=== PATIENT | male | born 1970 | race Caucasian/White ===

== ENCOUNTER 2017-03-24 14:32 | Emergency (ER) | payer SELFPAY ==
[~2017-03-24] VITALS: Ht 177.8 cm; Wt 72.5 kg
[2017-03-24 14:33] VITALS: BP 172/111; PULSE 112; RESP 20; TEMP 98.4; O2SAT 99
[2017-03-24] MEDS ORDERED: LIDOCAINE HCL 1% 50 ML VIAL INFIL ONE (16:00)
[2017-03-24] MEDS ORDERED: KETOROLAC TROMETHAMINE 30 MG/ML (IVP) VIAL IVP ONE (16:00)
[2017-03-24] MEDS ORDERED: SODIUM CHLORIDE 0.9% FLUSH 10 ML FLUSH IVF PRN (16:00)
[2017-03-24] MEDS ORDERED: SODIUM CHLOR 0.9% 1000 ML INJ 1,000 ML IV ONE (16:00)
[2017-03-24] MEDS ORDERED: CLINDAMYCIN INJ 900 MG in SODIUM CHLORIDE 0.9% INJ 100 ML IV ONE (16:00)
--- NOTE | 2017-03-24 16:06 | PD ---
HPI Chief Complaint: Bite or Sting Time Seen by Provider: 15:56 Travel History International Travel<30 days: No Contact w/Intl Traveler<30days: No Traveled to known affect area: No History of Present Illness HPI 46 Yo M presents to the ED for evaluation of pain, redness and swelling of the left axilla x 5 days. The patient thinks he may been bitten by a spider while hanging plywood over the windows before hurting Chanel. He states that he has attempted to squeeze the area multiple times with no benefit symptoms. He endorses chills, nausea and vomiting. He has not measured a fever at home. States his tetanus immunization was updated in 2016. He denies chronic health problems and takes no daily medications. PFSH Past Medical History Medical History: Denies Significant Hx Anxiety: Yes Depression: Yes Cardiovascular Problems: Yes Diminished Hearing: No Hypertension: Yes Psychiatric: Yes Past Surgical History Surgical History: No Previous Surgery Social History Alcohol Use: No Tobacco Use: Yes Substance Use: No Allergies-Medications (Allergen,Severity, Reaction): Coded Allergies: No Known Allergies (Unverified , 03/24/17) Reported Meds & Prescriptions Reported Meds & Active Scripts Active Ibuprofen 800 Mg Tab 800 Mg PO Q8H Clindamycin (Clindamycin HCl) 150 Mg Cap 450 Mg PO Q8HR 7 Days Review of Systems Except as stated in HPI: all other systems reviewed are Neg Physical Exam Narrative GENERAL: Well-nourished, well-developed male in no acute distress. SKIN: Focused skin assessment warm/dry. SKIN: There is an indurated area in the left axilla which measures about 4 cm in diameter. It is fluctuant but there is no pointing or drainage. There is a wide zone of inflammation around it, tender axillary LAD noted. HEAD: Normocephalic. EYES: No scleral icterus. No injection or drainage. NECK: Supple, trachea midline. No JVD or lymphadenopathy. CARDIOVASCULAR: Regular rate and rhythm without murmurs, gallops, or rubs. RESPIRATORY: Breath sounds clear and equal bilaterally. No accessory muscle use. GASTROINTESTINAL: Abdomen soft, non-tender, nondistended. MUSCULOSKELETAL: No cyanosis, or edema. BACK: Nontender without obvious deformity. No CVA tenderness. Data Data Last Documented VS Vital Signs Date Time Temp Pulse Resp B/P (MAP) Pulse Ox O2 Delivery O2 Flow Rate FiO2 03/24/17 18:05 03/24/17 17:20 94 22 100 Room Air 03/24/17 14:33 98.4 Orders Orders Basic Metabolic Panel (Bmp) (03/24/17 15:52) Complete Blood Count With Diff (03/24/17 15:52) Blood Culture (03/24/17 15:52) Wound Culture And Gram Stain (03/24/17 15:52) Iv Access Insert/Monitor (03/24/17 15:52) Ketorolac Inj (Toradol Inj) (03/24/17 16:00) Sodium Chloride 0.9% Flush (Ns Flush) (03/24/17 16:00) Clindamycin Inj (Cleocin Inj) (03/24/17 16:00) Lactic Acid Sepsis Protocol (03/24/17 15:52) Sodium Chlor 0.9% 1000 Ml Inj (Ns 1000 M (03/24/17 16:00) Westergren Sedimentation Rate (03/24/17 15:52) C-Reactive Protein (Crp) (03/24/17 15:52) Lidocaine 1% Inj (Xylocaine 1% Inj) (03/24/17 17:00) Labs Laboratory Tests Test 03/24/17 16:13 03/24/17 16:15 White Blood Count 8.2 TH/MM3 Red Blood Count 5.21 MIL/MM3 Hemoglobin 15.1 GM/DL Hematocrit 45.3 % Mean Corpuscular Volume 87.0 FL Mean Corpuscular Hemoglobin 29.0 PG Mean Corpuscular Hemoglobin Concent 33.3 % Red Cell Distribution Width 13.4 % Platelet Count 241 TH/MM3 Mean Platelet Volume 8.7 FL Neutrophils (%) (Auto) 62.4 % Lymphocytes (%) (Auto) 24.6 % Monocytes (%) (Auto) 10.0 % Eosinophils (%) (Auto) 2.4 % Basophils (%) (Auto) 0.6 % Neutrophils # (Auto) 5.1 TH/MM3 Lymphocytes # (Auto) 2.0 TH/MM3 Monocytes # (Auto) 0.8 TH/MM3 Eosinophils # (Auto) 0.2 TH/MM3 Basophils # (Auto) 0.0 TH/MM3 CBC Comment DIFF FINAL Differential Comment Blood Urea Nitrogen 9 MG/DL Creatinine 0.82 MG/DL Random Glucose 102 MG/DL Calcium Level 8.9 MG/DL Sodium Level 138 MEQ/L Potassium Level 3.9 MEQ/L Chloride Level 103 MEQ/L Carbon Dioxide Level 29.0 MEQ/L Anion Gap 6 MEQ/L Estimat Glomerular Filtration Rate 101 ML/MIN C-Reactive Protein 2.82 MG/DL Lactic Acid Level 1.3 mmol/L MDM Medical Decision Making Medical Screen Exam Complete: Yes Emergency Medical Condition: Yes Differential Diagnosis Abscess versus cellulitis versus sepsis versus other Narrative Course 46-year-old male presents to the ED for evaluation of possible spider bite in the left axilla 5 days. On arrival the patient is tachycardic with a rate of 112 and afebrile. Physical exam reveals a large abscess in the left axilla with tender lymphadenopathy and a wide area of inflammation noted. IV established. Wound and blood cultures were obtained. Abscess I&D was performed by my colleague GYPSY Morrison. Please see her note for those details. The patient was administered 1 L normal saline, 900 mg clindamycin and 30 mg Toradol IV. CBC: WBC 8.2, hemoglobin 15.1 BMP: Unremarkable Lactic acid: 1.3 CRP: 2.82 ESR: Pending Patient reports improvement of his pain symptoms after the I&D procedure. Skin marker was used to demarcate the line of cellulitis on the chest. Heart rate improved to 94 on recheck. We'll trial him on outpatient clindamycin and anti- inflammatories. He is instructed to begin the antibiotics tonight, return to the ED tomorrow for wound recheck. He was provided a note for work. He indicated understanding of instructions and is agreeable to the care plan. He is stable and discharged home. Diagnosis Primary Impression: Abscess of axilla, left Additional Impression: Cellulitis of axilla, left Referrals: [facility] Patient Instructions: Abscess (ED), General Instructions Departure Forms: Tests/Procedures, Work Release Enter return to work date: Mar 27, 2017 Additional Instructions: Rest, hydrate. Do not change the dressing. Take the antibiotics as they are prescribed, even if your symptoms resolve. 800 mg ibuprofen up to 3 times a day as needed to reduce pain and inflammation. Return to the ED TOMORROW for wound recheck. Follow-up with your primary care provider. Return to the ED for any urgent or emergent medical condition. Med/Other Pt SpecificInfo: Prescription(s) given Scripts Ibuprofen (Ibuprofen) 800 Mg Tab 800 MG PO Q8H, #15 TAB 0 Refills Prov: Sharon Traylor MD 03/24/17 Clindamycin (Clindamycin) 150 Mg Cap 450 MG PO Q8HR for Infection for 7 Days, CAP 0 Refills Prov: Sharon Traylor MD 03/24/17 Disposition: 01 DISCHARGE HOME Condition: Stable Cheri Rice Mar 24, 2017 16:06
[2017-03-24 16:55] LABS: AUTOMATED NEUTROPHIL # 5.1 TH/MM3 (1.8-7.7); BASOPHIL % 0.6 % (0.0-2.0); EOSINOPHIL # 0.2 TH/MM3 (0-0.4); EOSINOPHIL % 2.4 % (0.0-4.0); HEMATOCRIT 45.3 % (39.0-51.0); HEMO FLAGS DIFF FINAL; LYMPH % 24.6 % (9.0-44.0); MEAN CORPUSCULAR HGB CONC 33.3 % (32.0-36.0); NEUT % 62.4 % (16.0-70.0); PLATELET COUNT 241 TH/MM3 (150-450); RED BLOOD COUNT 5.21 MIL/MM3 (4.50-5.90); RED CELL DISTRIBUTION WIDTH 13.4 % (11.6-17.2); WHITE BLOOD COUNT 8.2 TH/MM3 (4.0-11.0)
[2017-03-24] MEDS ORDERED: LIDOCAINE HCL 1% 20 ML VIAL INFIL ONE (17:00)
[2017-03-24 17:15] LABS: POTASSIUM 3.9 MEQ/L (3.5-5.1)
[2017-03-24 17:20] VITALS: BP 144/89; PULSE 94; RESP 22; O2SAT 100
[2017-03-24] MEDS ORDERED: CLIN1CAP5 PO (17:25)
[2017-03-24] MEDS ORDERED: IBUP800T23 PO (17:25)
--- NOTE | 2017-03-24 17:28 | PD ---
Physical Exam Date Seen by Provider: Mar 24, 2017 Time Seen by Provider: 17:00 Data Data Last Documented VS Vital Signs Date Time Temp Pulse Resp B/P (MAP) Pulse Ox O2 Delivery O2 Flow Rate FiO2 03/24/17 17:20 94 22 144/89 (107) 100 Room Air 03/24/17 14:33 98.4 Orders Orders Basic Metabolic Panel (Bmp) (03/24/17 15:52) Complete Blood Count With Diff (03/24/17 15:52) Blood Culture (03/24/17 15:52) Wound Culture And Gram Stain (03/24/17 15:52) Iv Access Insert/Monitor (03/24/17 15:52) Ketorolac Inj (Toradol Inj) (03/24/17 16:00) Sodium Chloride 0.9% Flush (Ns Flush) (03/24/17 16:00) Clindamycin Inj (Cleocin Inj) (03/24/17 16:00) Lactic Acid Sepsis Protocol (03/24/17 15:52) Sodium Chlor 0.9% 1000 Ml Inj (Ns 1000 M (03/24/17 16:00) Westergren Sedimentation Rate (03/24/17 15:52) C-Reactive Protein (Crp) (03/24/17 15:52) Lidocaine 1% Inj (Xylocaine 1% Inj) (03/24/17 17:00) Labs Laboratory Tests Test 03/24/17 16:13 03/24/17 16:15 White Blood Count 8.2 TH/MM3 Red Blood Count 5.21 MIL/MM3 Hemoglobin 15.1 GM/DL Hematocrit 45.3 % Mean Corpuscular Volume 87.0 FL Mean Corpuscular Hemoglobin 29.0 PG Mean Corpuscular Hemoglobin Concent 33.3 % Red Cell Distribution Width 13.4 % Platelet Count 241 TH/MM3 Mean Platelet Volume 8.7 FL Neutrophils (%) (Auto) 62.4 % Lymphocytes (%) (Auto) 24.6 % Monocytes (%) (Auto) 10.0 % Eosinophils (%) (Auto) 2.4 % Basophils (%) (Auto) 0.6 % Neutrophils # (Auto) 5.1 TH/MM3 Lymphocytes # (Auto) 2.0 TH/MM3 Monocytes # (Auto) 0.8 TH/MM3 Eosinophils # (Auto) 0.2 TH/MM3 Basophils # (Auto) 0.0 TH/MM3 CBC Comment DIFF FINAL Differential Comment Blood Urea Nitrogen 9 MG/DL Creatinine 0.82 MG/DL Random Glucose 102 MG/DL Calcium Level 8.9 MG/DL Sodium Level 138 MEQ/L Potassium Level 3.9 MEQ/L Chloride Level 103 MEQ/L Carbon Dioxide Level 29.0 MEQ/L Anion Gap 6 MEQ/L Estimat Glomerular Filtration Rate 101 ML/MIN C-Reactive Protein 2.82 MG/DL Lactic Acid Level 1.3 mmol/L [facility] Medical Record Reviewed: Yes Supervised Visit with TRISHA: Yes Narrative Course I was asked by the provider to perform an I&D on an abscess that was under the left arm. Abscess was approximately 2 x 3 cm with fluctuation and erythema. An I&D was performed. Please see my procedural note for details. The patient was a 46-year-old male that was alert and oriented and anxious about the I&D. He was cooperative though. GYPSY Mosqueda retains care of this patient. Please see her note for further details and disposition. Procedures Procedure Narrative INCISION AND DRAINAGE OF ABSCESS: The area was prepped and was sterilely draped. A subcutaneous wheal of 1 % Xylocaine with a total number 12 mL was used to anesthetize the area properly. A number 11 scalpel was used to make a 1.5-cm incision across the area of the abscess. The abscess was drained, complex loculations were broken down, and irrigated with normal saline. Cultures were obtained. Quarter inch iodoform packing was placed in the wound. Sterile dressing applied. Patient advised to have packing removed in two days. Scripts No Active Prescriptions or Reported Meds Patricia Dang Mar 24, 2017 17:28
== END 2017-03-24 18:09 | disposition home or self-care (01) ==
LOC: NEPC 14:32
DX: L02.412 Cutaneous abscess of left axilla (principal); B95.62 Methicillin resistant Staphylococcus aureus infection as the cause of diseases classified elsewhere; R68.83 Chills (without fever); Z72.0 Tobacco use
CPT/HCPCS: 10061; 80048; 83605; 85025; 85652; 86140; 86403; 87040; 87070; 87186; 96374; 96375; 99284; J1885; J7030; 87205

== ENCOUNTER 2017-03-26 08:54 | Emergency (ER) | payer SELFPAY ==
[~2017-03-26] VITALS: Ht 177.8 cm; Wt 75.0 kg
[~2017-03-26 08:54] MED LIST: CLIN1CAP5 PO; IBUP800T23 PO
[2017-03-26 08:57] VITALS: BP 162/106; PULSE 114; RESP 20; TEMP 98.4; O2SAT 100
--- NOTE | 2017-03-26 09:21 | PD ---
HPI . Left axilla abscess Chief Complaint: Wound/Suture/Staple Re-Check Time Seen by Provider: 09:08 Travel History International Travel<30 days: No Contact w/Intl Traveler<30days: No Traveled to known affect area: No History of Present Illness HPI 46-year-old male here for recheck on his left axilla abscess that was drained on March 24. Patient had abscess drained. He was advised to follow-up the following day, but tells me he was unable to do so secondary lack of transportation. Upon further discussion we were talking about medicines and he tells me he is taking all of his medicines as prescribed. He says that the pain in his axilla is surpassing that of what ibuprofen can handle. I go to examine the wound and further question his compliance with the antibiotics, and patient admits that he did not ever fill his prescriptions. PFSH Past Medical History Anxiety: Yes Depression: Yes Cardiovascular Problems: Yes Diminished Hearing: No Hypertension: Yes Psychiatric: Yes Social History Alcohol Use: No Tobacco Use: Yes Substance Use: No Allergies-Medications (Allergen,Severity, Reaction): Coded Allergies: No Known Allergies (Unverified , 03/26/17) Reported Meds & Prescriptions Reported Meds & Active Scripts Active Ibuprofen 800 Mg Tab 800 Mg PO Q8H Clindamycin (Clindamycin HCl) 150 Mg Cap 450 Mg PO Q8HR 7 Days Review of Systems General / Constitutional: No: Fever Eyes: No: Visual changes HENT: No: Headaches Cardiovascular: No: Chest Pain or Discomfort Respiratory: No: Shortness of Breath Gastrointestinal: No: Abdominal Pain Genitourinary: No: Dysuria Musculoskeletal: No: Pain Skin: Positive Other (left axilla abscess), No Rash Neurologic: No: Weakness Psychiatric: No: Depression Endocrine: No: Polydipsia Hematologic/Lymphatic: No: Easy Bruising Physical Exam Narrative GENERAL: AAO x 3, no acute distress, Well-nourished, well-developed patient. SKIN: Warm and dry. No visible rashes or bruising. left axilla with large abscess with minimal drainage, still indurated. tender to touch HEAD: Normocephalic and atraumatic. EYES: No scleral icterus. No injection or drainage. EOM intact, PERRLA ENT: No nasal drainage noted. Mucous membranes pink. Airway patent. NECK: Supple, trachea midline. No JVD. CARDIOVASCULAR: Regular rate and rhythm without murmurs, gallops, or rubs. RESPIRATORY: tachycardic GASTROINTESTINAL:visual inspection normal EXTREMITIES: No cyanosis or edema. BACK: Nontender without obvious deformity. No CVA tenderness. NEURO: CN II-12 intact, PSYCH: AAO x 3, normal affect. Data Data Last Documented VS Vital Signs Date Time Temp Pulse Resp B/P (MAP) Pulse Ox O2 Delivery O2 Flow Rate FiO2 03/26/17 09:34 98.2 97 22 165/107 (126) 99 Room Air MDM Medical Decision Making Medical Screen Exam Complete: Yes Emergency Medical Condition: Yes Medical Record Reviewed: Yes Differential Diagnosis left axilla abscess, cellulitis, less likely sepsis Narrative Course 46 yr old male here with left axilla abscess that was already drained on . He was advised to start clindamycin and has not yet done so. I discussed with Dr. Lopez and recommend IV meds as I do not believe this patient will be compliant with outpatient meds. Condition: Stable So Pena Mar 26, 2017 09:21
[2017-03-26 09:34] VITALS: BP 165/107; PULSE 97; RESP 22; TEMP 98.2; O2SAT 99
[2017-03-26] MEDS ORDERED: KETOROLAC TROMETHAMINE 60 MG/2 ML (IM) VIAL IM ONE (11:00)
[2017-03-26] MEDS ORDERED: CLINDAMYCIN PHOS 600 MG/4 ML VIAL IM ONE (11:00)
[2017-03-26] MEDS ORDERED: CEPH-460 PO (11:01)
[2017-03-26] MEDS ORDERED: BACT800T5 PO (11:01)
--- NOTE | 2017-03-26 11:01 | PD ---
Physical Exam Narrative Patient was seen by my gynecological assistant and signed out to me. Reviewing wound culture done 2 days ago. 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 Data Data Last Documented VS Vital Signs Date Time Temp Pulse Resp B/P (MAP) Pulse Ox O2 Delivery O2 Flow Rate FiO2 03/26/17 09:34 98.2 97 22 165/107 (126) 99 Room Air Orders Orders Ketorolac Inj (Toradol Inj) (03/26/17 11:00) Clindamycin Inj (Cleocin Inj) (03/26/17 11:00) Asp:No Reaction To [place]/Vanc (Asp Crit (03/26/17 11:15) Asp: Does Not Meet Inpt Admit (Asp Crit: (03/26/17 11:15) Asp: Location Of Dalbav Admin (Asp Crit: (03/26/17 11:15) [facility] Information ([facility] (03/26/17 11:15) Dalbavancin Inj (Dalvance Inj) (03/26/17 11:04) Ketorolac Inj (Toradol Inj) (03/26/17 11:15) MDM Supervised Visit with TRISHA: Yes Narrative Course Dalvance IV given. Toradol IV given. Diagnosis Primary Impression: Abscess of left axilla Patient Instructions: General Instructions Additional Instruction: Do not take clindamycin. Prescriptions replacement including Bactrim DS . Wound care daily. Return in 2 days for recheck. Med/Other Pt SpecificInfo: Prescription(s) given Scripts Sulfamethoxazole-Trimethoprim (Bactrim DS) 800-160 Mg Tab 1 TAB PO BID for Infection, #20 TAB 0 Refills Prov: Raj Lopez MD 03/26/17 Disposition: 01 DISCHARGE HOME Condition: Stable Raj Lopez MD Mar 26, 2017 11:01
[2017-03-26] MEDS ORDERED: DALBAVANCIN INJ 1,500 MG in DEXTROSE 5% IN WATE 500 ML INJ 500 ML IV STA ×2 (11:04)
[2017-03-26] MEDS ORDERED: ASP: Location of Dalbavancin administration OTHER ONE (11:15)
[2017-03-26] MEDS ORDERED: KETOROLAC TROMETHAMINE 30 MG/ML (IVP) VIAL IV PUSH ONE (11:15)
[2017-03-26] MEDS ORDERED: MISCELLANEOUS PHARMACY INFORMATION XX ONE (11:15)
[2017-03-26] MEDS ORDERED: ASP: No known hypersensitivity to Vanco, Telavancin, Dalbavancin OTHER ONE (11:15)
[2017-03-26] MEDS ORDERED: ASP: Does not meet inpatient admission criteria OTHER ONE (11:15)
== END 2017-03-26 13:54 | disposition home or self-care (01) ==
LOC: NEPD 08:54
DX: L02.412 Cutaneous abscess of left axilla (principal); B95.62 Methicillin resistant Staphylococcus aureus infection as the cause of diseases classified elsewhere; I10 Essential (primary) hypertension; Z72.0 Tobacco use
CPT/HCPCS: 96374; 96375; 99284; J0875; J1885; J7060

== ENCOUNTER 2017-03-29 17:53 | Emergency (ER) | payer SELFPAY ==
[~2017-03-29] VITALS: Ht 177.8 cm; Wt 74.0 kg
[~2017-03-29 17:53] MED LIST changes: +BACT800T5 PO
[2017-03-29 17:56] VITALS: BP 196/118; PULSE 118; RESP 20; TEMP 97.6; O2SAT 99
--- NOTE | 2017-03-29 18:36 | PD ---
HPI Chief Complaint: Skin Problem Time Seen by Provider: 18:15 Travel History International Travel<30 days: No Contact w/Intl Traveler<30days: No Traveled to known affect area: No History of Present Illness HPI This is a 46-year-old male who presents to the emergency department having had an axillary abscess that was drained 5 days ago. His wound cultures grew MRSA. He received a phone call from our charge nurse telling him that he needed to come back to the emergency department because of the bacteria that he grew in his wound culture. He had repeat presented 2 days ago following incision and drainage. The packing was removed and the patient was started on Bactrim because he hadn't filled his antibiotics and he was given a dose of Dalvance. Today he feels like the wound is getting much better and he denies any fevers or chills. He has mild pain at the area, constant, with no associated numbness or weakness. He says it is significantly improved from 5 days ago. He has noticed some other swollen areas in his axilla. He really just came because the charge nurse called him. PFSH Past Medical History Anxiety: Yes Depression: Yes Cardiovascular Problems: Yes Diminished Hearing: No Hypertension: Yes Psychiatric: Yes Social History Alcohol Use: No Tobacco Use: Yes Substance Use: No Allergies-Medications (Allergen,Severity, Reaction): Coded Allergies: No Known Allergies (Unverified , 03/29/17) Reported Meds & Prescriptions Reported Meds & Active Scripts Active Bactrim DS (Sulfamethoxazole-Trimethoprim) 800-160 Mg Tab 1 Tab PO BID Ibuprofen 800 Mg Tab 800 Mg PO Q8H Clindamycin (Clindamycin HCl) 150 Mg Cap 450 Mg PO Q8HR 7 Days Review of Systems Except as stated in HPI: all other systems reviewed are Neg Physical Exam Narrative GENERAL:Well appearing, no acute distress SKIN: Incision in the left axilla with no active drainage, surrounding area is cool with no erythema or induration. He is nontender. He does have 3 small areas that appear to be early hidradenitis in the upper armpit. HEAD: Atraumatic. Normocephalic. EYES: Pupils equal and round. No injection or drainage. ENT: Moist mucous membranes NECK: Trachea midline. CARDIOVASCULAR: Regular rate and rhythm. No murmur appreciated. RESPIRATORY: Clear to auscultation. Breath sounds equal bilaterally. GASTROINTESTINAL: Abdomen soft, non-tender, nondistended. MUSCULOSKELETAL: No obvious deformities. NEUROLOGICAL: Awake and alert. No obvious cranial nerve deficits. Moving all extremities. PSYCHIATRIC: Appropriate mood and affect; insight and judgment normal. Data Data Last Documented VS Vital Signs Date Time Temp Pulse Resp B/P (MAP) Pulse Ox O2 Delivery O2 Flow Rate FiO2 03/29/17 17:56 97.6 118 20 196/118 (144) 99 Room Air MDM Medical Decision Making Medical Screen Exam Complete: Yes Emergency Medical Condition: Yes Differential Diagnosis Abscess, cellulitis, sepsis Narrative Course This is a 46-year-old male who presents to the emergency department with an axillary abscess in the left side. He received Dalvance three days ago. He received a phone call from the charge nurse telling him to come back to the emergency department. On recheck his wound appears to be well hearing any nontoxic appearing. He is quite agitated so I think his tachycardia in the setting of anxiety and I don't think it reflects a SIRS response. I think patient can safely be discharged home. He was advised to use warm compresses for the other areas of early hidradenitis that I appreciate on his axillary exam. Diagnosis Primary Impression: Abscess of axilla, left Patient Instructions: General Instructions Additional Instructions: If you develop fever, increasing redness, warmth, or spreading of your infection , or severe pain return to the emergency department immediately as you may require antibiotics through your IV. Complete your course of antibiotics as prescribed. Med/Other Pt SpecificInfo: No Change to Meds Disposition: 01 DISCHARGE HOME Condition: Stable Juliet Camargo MD Mar 29, 2017 18:36
[2017-03-29 18:51] VITALS: BP 120/78; TEMP 97.8
== END 2017-03-29 19:00 | disposition home or self-care (01) ==
LOC: NEPE 17:53
DX: L02.412 Cutaneous abscess of left axilla (principal); B95.62 Methicillin resistant Staphylococcus aureus infection as the cause of diseases classified elsewhere
CPT/HCPCS: 99281